=== PATIENT | female | born 1940 | race Caucasian/White ===

== ENCOUNTER 2016-12-11 15:35 | Inpatient (IN) | payer MEDICARE ==
--- NOTE | 2016-12-11 16:13 | ER Document Report ---
ED Respiratory Problem - General Chief Complaint: Shortness Of Breath Stated Complaint: SHORTNESS OF BREATH Time Seen by Provider: 12/11/16 16:02 Notes: This is a 76-year-old female with extensive history of COPD presents emergency department today with chief complaint of shortness of breath. Went to see primary care doctor and was referred here. Came by ambulance. Received Solu- Medrol in route as well as breathing treatment. States that she feels much better at this time. Has been having increased cough, congestion, and generally not feeling well. Denies any fevers. Denies any chest pain. Does not wear oxygen on a regular basis. Quit smoking 8 years ago. Has any prior history of DVT or pulmonary embolism. Denies any swelling or pain in the calves. Denies any previous history of blood clots. Denies any significant family history TRAVEL OUTSIDE OF THE [place] IN LAST 30 DAYS: No - HPI Patient complains to provider of: COPD Onset: Last week Duration: Continuous Context: Hx COPD Short of Breath: Moderate Chest pain/discomfort: denies: Center, Constant, Heaviness, Intermittent, Left, Pain, Radiates to arm, Radiates to back, Radiates to jaw, Right, Tightness, Worse with deep breaths Cough: Productive Sputum amount: None Sputum color: Brown Sputum consistency: Thick At home treatment: Bronchodilators EMS treatments: Bronchodilators Associated symptoms: None - Related Data Allergies/Adverse Reactions: codeine Allergy (Verified 12/11/16 16:03) Penicillins Allergy (Verified 12/11/16 16:03) sulfamethoxazole [From Bactrim] Allergy (Verified 12/11/16 16:03) trimethoprim [From Bactrim] Allergy (Verified 12/11/16 16:03) Home Medications: Current Home Medications Atorvastatin Calcium [Lipitor 20 mg Tablet] 20 mg PO QHS 12/11/16 [History] Omeprazole 20 mg PO DAILY 12/11/16 [History] Past Medical History - General Information source: Patient, Relative - Social History Smoking Status: Former Smoker Frequency of alcohol use: None Drug Abuse: None Family History: Reviewed & Not Pertinent Review of Systems - Review of Systems Constitutional: No symptoms reported EENT: No symptoms reported Cardiovascular: No symptoms reported Respiratory: No symptoms reported, Cough, Short of breath, Sputum, Wheezing Gastrointestinal: No symptoms reported Genitourinary: No symptoms reported Female Genitourinary: No symptoms reported Musculoskeletal: No symptoms reported Skin: No symptoms reported Hematologic/Lymphatic: No symptoms reported Neurological/Psychological: No symptoms reported Physical Exam - Vital signs Vitals: Pulse Ox 91 L 12/11/16 15:48 Interpretation: Normal - General General appearance: Appears well, Alert - HEENT Head: Normocephalic, Atraumatic Eyes: Normal Pupils: PERRL - Respiratory Respiratory status: No respiratory distress Chest status: Nontender Breath sounds: Normal, Rales, Rhonchi, Wheezing Chest palpation: Normal - Cardiovascular Rhythm: Regular Heart sounds: Normal auscultation Murmur: No - Abdominal Inspection: Normal Distension: No distension Bowel sounds: Normal Tenderness: Nontender Organomegaly: No organomegaly - Back Back: Normal, Nontender - Extremities General upper extremity: Normal inspection, Nontender, Normal color, Normal ROM , Normal temperature General lower extremity: Normal inspection, Nontender, Normal color, Normal ROM , Normal temperature, Normal weight bearing. No: Almita's sign - Neurological Neuro grossly intact: Yes Cognition: Normal Orientation: AAOx4 Alicia Coma Scale Eye Opening: Spontaneous Alicia Coma Scale Verbal: Oriented Alicia Coma Scale Motor: Obeys Commands [place] Coma Scale Total: 15 Speech: Normal Motor strength normal: LUE, RUE, LLE, RLE Sensory: Normal - Psychological Associated symptoms: Normal affect, Normal mood - Skin Skin Temperature: Warm Skin Moisture: Dry Skin Color: Normal Course - Re-evaluation Re-evalutation: 12/11/16 17:20 This is a pleasant 76-year-old female with history of COPD. Likely COPD exacerbation. Was initially 91% at the doctor's office. Now sitting at 94% on 3 L of oxygen. Heart rate is 92, blood pressure is 133/70. Patient states that she she feels much better at this time. We will start her on some antibiotics. Has already received Solu-Medrol and breathing treatments. If patient can maintain her oxygen levels and an appropriate level she may be able to go home. Will reassess after treatments are complete. A total of 3 breathing treatments have been given by EMS and in the emergency department. 12/11/16 18:45 Turned oxygen off and patient precipitously dropped to 88% and a respiratory rate increase. Patient unable to go home. No home O2 available. Patient is a frail COPD patient who needs to be admitted. Antibiotics have been started. Patient agrees to admit at this time. Consult with hospitalist for admit. - Vital Signs Vital signs: Temp Pulse Resp BP Pulse Ox 98.7 F 25 H 148/76 H 94 12/11/16 15:50 12/11/16 18:00 12/11/16 18:00 12/11/16 18:00 - Laboratory Result Diagrams: 12/11/16 16:07 12/11/16 16:07 Laboratory results interpreted by me: 12/11/16 12/11/16 12/11/16 16:07 16:07 17:47 RBC 3.62 L Hgb 11.7 L Hct 35.6 L MCV 98 H Chloride 96 L Creatinine 0.37 L AST 47 H ALT 71 H Urine Ketones TRACE H Urine Blood MODERATE H Ur Leukocyte Esterase LARGE H Urine Ascorbic Acid 40 H - EKG Interpretation by Me EKG shows normal: Sinus rhythm, [place], Intervals, QRS Complexes, ST-T Waves Discharge - Discharge Clinical Impression: COPD exacerbation UTI (urinary tract infection) Qualifiers: Urinary tract infection type: site unspecified Hematuria presence: without hematuria Qualified Code(s): N39.0 - Urinary tract infection, site not specified Condition: Good Disposition: ADMITTED INPATIENT Admitting Provider: Hospitalist Unit Admitted: Telemetry
[2016-12-11 16:20] LABS: ABSOLUTE BASOPHILS # (AUTO) 0.1 10^3/uL (0.0-0.2); ABSOLUTE EOSINOPHILS # (AUTO) 0.4 10^3/uL (0.0-0.6); ABSOLUTE LYMPHOCYTES (AUTO) 2.1 10^3/uL (0.5-4.7); ABSOLUTE MONOCYTES (AUTO) 0.5 10^3/uL (0.1-1.4); ABSOLUTE NEUT (AUTO) 4.3 10^3/uL (1.7-8.2); BASOPHILS % (AUTO) 0.9 % (0-2); HEMATOCRIT 35.6 % (36.0-47.0); HEMOGLOBIN 11.7 g/dL (12.0-15.5); HGB HCT DIFFERENCE -0.5; LYMPHOCYTES % (AUTO) 28.1 % (13-45); MEAN CORPUSCULAR HEMOGLOBIN 32.5 pg (27.0-33.4); MEAN CORPUSCULAR VOLUME 98 fl (80-97); MONOCYTES % (AUTO) 7.2 % (3-13); RED BLOOD COUNT 3.62 10^6/uL (3.72-5.28); RED CELL DISTRIBUTION WIDTH 12.7 % (11.5-14.0); SEGMENTED NEUTROPHILS % (AUTO) 57.8 % (42-78); WHITE BLOOD COUNT 7.5 10^3/uL (4.0-10.5)
--- NOTE | 2016-12-11 16:27 | RADIOLOGY REPORT (SQ) ---
EXAM DESCRIPTION: CHEST SINGLE VIEW COMPLETED DATE/TIME: 12/11/2016 4:08 pm REASON FOR STUDY: SOB COMPARISON: None. EXAM PARAMETERS: NUMBER OF VIEWS: One view. TECHNIQUE: Single frontal radiographic view of the chest acquired. RADIATION DOSE: NA LIMITATIONS: Limited positioning. FINDINGS: LUNGS AND PLEURA: Probable emphysematous changes with mild scarring. Pleural thickening i n the apices. No focal lobar infiltrates. No pleural effusion or pneumothorax. MEDIASTINUM AND HILAR STRUCTURES: No masses. Contour normal. HEART AND VASCULAR STRUCTURES: Heart normal in size. Normal vasculature. BONES: No acute findings. Chronic appearing changes in the spine with previous vertebroplasty. HARDWARE: None in the chest. OTHER: No other significant finding. IMPRESSION: COPD WITH CHRONIC SCARRING. NO ACUTE FINDINGS. TECHNICAL DOCUMENTATION: JOB ID: [id number]
[2016-12-11 16:42] LABS: ALANINE AMINOTRANSFERASE 71 U/L (9-52); ALBUMIN 4.4 g/dL (3.5-5.0); ALKALINE PHOSPHATASE 108 U/L (38-126); ANION GAP 12 (5-19); ASPARTATE AMINO TRANSFERASE 47 U/L (14-36); BILIRUBIN,DIRECT 0.4 mg/dL (0.0-0.4); BILIRUBIN,TOTAL 0.7 mg/dL (0.2-1.3); BLOOD UREA NITROGEN 10 mg/dL (7-20); CALCIUM 9.9 mg/dL (8.4-10.2); CARBON DIOXIDE 30 mmol/L (22-30); CHLORIDE 96 mmol/L (98-107); CREATINE KINASE 47 U/L (30-135); CREATININE RESULT 0.37 mg/dL (0.52-1.25); GLUCOSE 94 mg/dL (75-110); POTASSIUM 4.2 mmol/L (3.6-5.0); SODIUM 137.9 mmol/L (137-145); TOTAL PROTEIN 7.2 g/dL (6.3-8.2)
[2016-12-11 16:54] LABS: TROPONIN I < 0.012 ng/mL
[2016-12-11] MEDS ORDERED: LEVOFLOXACIN 500 MG/D5W RTU 500 MG/100 ML RTUPB IV SCH (18:00)
[2016-12-11] MEDS ORDERED: LEVOFLOXACIN 500 MG/D5W RTU 500 MG/100 ML RTUPB IV ONE (18:15)
[2016-12-11 18:16] LABS: APPEARANCE,URINE TURBID; BILIRUBIN,URINE NEGATIVE (NEGATIVE); GLUCOSE, URINE NEGATIVE (NEGATIVE); KETONES,URINE TRACE mg/dL (NEGATIVE); LEUKOCYTE ESTERASE,URINE LARGE (NEGATIVE); NITRITE,URINE NEGATIVE (NEGATIVE); PROTEIN,URINE NEGATIVE (NEGATIVE); URINE SPECIFIC GRAVITY 1.006; UROBILINOGEN,URINE NEGATIVE mg/dL (<2.0)
[2016-12-11] MEDS ORDERED: IPRATROPIUM/ALBUTEROL 0.5-2.5 MG/3 ML AMPUL NEB ONE (19:41)
[2016-12-11] MEDS: IPRATROPIUM/ALBUTEROL 0.5-2.5 MG/3 ML AMPUL NEB SCH (20:00)
[2016-12-11] MEDS: ALBUTEROL SULFATE 0.083% NEB 2.5 MG/3 ML AMPUL NEB PRN (20:00)
[2016-12-11] MEDS: METHYLPREDNISOLONE INJ 125 MG/2 ML SDV IV SCH (21:11)
[2016-12-11] MEDS ORDERED: GUAIFENESIN SYRP 200 MG/10 ML UDC PO PRN (21:42)
[2016-12-11] MEDS ORDERED: GUAIFENESIN 600 MG TABLET.SA PO SCH (22:00)
[2016-12-11] MEDS ORDERED: FAMOTIDINE 20 MG TABLET PO SCH (22:00)
--- NOTE | 2016-12-12 00:02 | PDOC H&P ---
History of Present Illness Admission Date/PCP: 12/11/16 21:42 Dr. Cotto History of Present Illness: JEN BAKER is a 76 year old female with past medical history of COPD, hypertension, hyperlipidemia, breast cancer treated with lumpectomy, and AVM of the spine who presents to the emergency department with complaints of shortness of breath and coughing. Patient reports she has been having a severe increase in her coughing over the last 3 days with production of brown to green sputum. She denies any fevers or chills. Patient reports a very long history of having left for about 2-1/2 years in an assisted living facility in [place] where she reports being poorly treated and having lost a significant amount of weight. She reports that she has been putting on weight now that she is living in [place]. She is now currently unable to walk. Patient denies any antecedent illness or sick contacts. Patient was given 2 breathing treatments and and Solu -Medrol by the EMS service, and is continuing to require oxygen and ongoing breathing treatments. She is referred to the hospitalist service for COPD exacerbation. Past Medical History Cardiac Medical History: Reports: Hyperlipidema, Hypertension Pulmonary Medical History: Reports: Chronic Obstructive Pulmonary Disease (COPD ) - 2L NC at home, Pneumonia EENT Medical History: Reports: Cataracts Malignancy Medical History: Reports: Breast Cancer GI Medical History: Reports: Gastroesophageal Reflux Disease Musculoskeltal Medical History: Reports: Arthritis Past Surgical History Past Surgical History: Reports: Appendectomy, Cholecystectomy, Orthopedic Surgery - femur john, lt shoulder, back surgery, ORIF of ankle Social History Smoking Status: Former Smoker Frequency of Alcohol Use: Rare Hx Recreational Drug Use: No Hx Prescription Drug Abuse: No - Advance Directive Resuscitation Status: Do Not Resuscitate Surrogate healthcare decision maker:: Jessie Flores, niece Family History Family History: Malignancy Parental Family History Reviewed: Yes Children Family History Reviewed: Yes Sibling(s) Family History Reviewed.: Yes Medication/Allergy Home Medications: Atorvastatin Calcium [Lipitor 20 mg Tablet] 20 mg PO QHS 12/11/16 Omeprazole 20 mg PO DAILY 12/11/16 Allergies/Adverse Reactions: codeine Allergy (Verified 12/11/16 16:03) Penicillins Allergy (Verified 12/11/16 16:03) sulfamethoxazole [From Bactrim] Allergy (Verified 12/11/16 16:03) trimethoprim [From Bactrim] Allergy (Verified 12/11/16 16:03) Review of Systems Constitutional: ABSENT: chills, fever(s), headache(s), weight gain, weight loss Eyes: ABSENT: visual disturbances Ears: ABSENT: hearing changes Cardiovascular: ABSENT: chest pain, dyspnea on exertion, edema, orthropnea, palpitations Respiratory: PRESENT: cough, dyspnea, sputum. ABSENT: hemoptysis Gastrointestinal: ABSENT: abdominal pain, constipation, diarrhea, hematemesis, hematochezia, melena, nausea, vomiting Genitourinary: ABSENT: difficulty urinating, dysuria, hematuria Musculoskeletal: ABSENT: joint swelling Integumentary: ABSENT: rash, wounds Neurological: PRESENT: abnormal gait - Unable to walk, other - Bilateral foot drop. ABSENT: abnormal speech, confusion, dizziness, focal weakness, syncope Psychiatric: PRESENT: depression - Insomnia. ABSENT: anxiety, homidical ideation, suicidal ideation Endocrine: ABSENT: cold intolerance, heat intolerance, polydipsia, polyuria Hematologic/Lymphatic: ABSENT: easy bleeding, easy bruising Physical Exam Vital Signs: Temp Pulse Resp BP Pulse Ox 98.3 F 20 145/83 H 96 12/11/16 21:01 12/11/16 21:01 12/11/16 21:00 12/11/16 21:01 General appearance: PRESENT: mild distress, thin, other - Very cachectic, chronically ill-appearing. ABSENT: well-developed, well-nourished Head exam: PRESENT: atraumatic, normocephalic Eye exam: PRESENT: conjunctiva pink, EOMI, PERRLA, other - Visible cataract lenses. ABSENT: conjunctival injection, scleral icterus Ear exam: PRESENT: normal external ear exam Mouth exam: PRESENT: dry mucosa, tongue midline Neck exam: ABSENT: JVD, lymphadenopathy, thyromegaly, tracheal deviation Respiratory exam: PRESENT: prolonged expiratory phas, rhonchi, symmetrical, tachypnea, unlabored, wheezes. ABSENT: accessory muscle use, crackles, rales, retraction Cardiovascular exam: PRESENT: RRR, +S1, +S2, systolic murmur. ABSENT: diastolic murmur, gallop, rubs Pulses: PRESENT: normal dorsalis pedis pul Vascular exam: PRESENT: normal capillary refill GI/Abdominal exam: PRESENT: normal bowel sounds, soft, other - Scaphoid. ABSENT : distended, firm, guarding, mass, Amor's sign, organolmegaly, rebound, rigid , tenderness Rectal exam: PRESENT: deferred Extremities exam: ABSENT: calf tenderness, clubbing, full ROM - Bilateral foot drop, pedal edema Neurological exam: PRESENT: alert, awake, oriented to person, oriented to place , oriented to time, oriented to situation, CN II-XII grossly intact, motor sensory deficit - Bilateral lower extremity weakness Psychiatric exam: PRESENT: appropriate affect, normal mood. ABSENT: homicidal ideation, suicidal ideation Skin exam: PRESENT: dry, intact, warm. ABSENT: cyanosis, rash Results Laboratory Results: 12/11/16 12/11/16 12/11/16 16:07 16:07 16:07 WBC 7.5 Hgb 11.7 L Plt Count 268 Sodium 137.9 Potassium 4.2 Chloride 96 L Carbon Dioxide 30 Anion Gap 12 BUN 10 Creatinine 0.37 L Glucose 94 Lactic Acid Calcium 9.9 Total Bilirubin 0.7 Direct Bilirubin 0.4 AST 47 H ALT 71 H Alkaline Phosphatase 108 Creatine Kinase 47 Troponin I < 0.012 Albumin 4.4 Urine Color Urine Appearance Urine Ketones Urine Blood Ur Leukocyte Esterase Urine WBC (Auto) Urine RBC (Auto) Urine Bacteria (Auto) Squamous Epi Cells Auto Urine Mucus (Auto) Urine Ascorbic Acid 12/11/16 12/11/16 16:35 17:47 WBC Hgb Plt Count Sodium Potassium Chloride Carbon Dioxide Anion Gap BUN Creatinine Glucose Lactic Acid 1.1 Calcium Total Bilirubin Direct Bilirubin AST ALT Alkaline Phosphatase Creatine Kinase Troponin I Albumin Urine Color GREEN Urine Appearance TURBID Urine Ketones TRACE H Urine Blood MODERATE H Ur Leukocyte Esterase LARGE H Urine WBC (Auto) 21 Urine RBC (Auto) 25 Urine Bacteria (Auto) 3+ Squamous Epi Cells Auto 1 Urine Mucus (Auto) RARE Urine Ascorbic Acid 40 H Impressions: Chest X-Ray 12/11/16 15:48 IMPRESSION: COPD WITH CHRONIC SCARRING. NO ACUTE FINDINGS. Status: Imported from PACS Assessment & Plan - Diagnosis (1) COPD exacerbation Is this a current diagnosis for this admission?: Yes Plan: Place patient on Solu-Medrol 80 mg iv q8h. scheduled duo nebs and as needed albuterol. Patient is conspicuously not on Spiriva or Advair. Would consider chronic inhaled corticosteroid as well as Spiriva for this patient. Patient with purulent sputum and currently on Levaquin pending sputum culture. (2) UTI (urinary tract infection) Qualifiers: Urinary tract infection type: site unspecified Hematuria presence: without hematuria Qualified Code(s): N39.0 - Urinary tract infection, site not specified Is this a current diagnosis for this admission?: Yes Plan: Patient currently on Levaquin pending culture (3) Acute hypoxemic respiratory failure Is this a current diagnosis for this admission?: Yes Plan: Oxygen to maintain saturation between 90 and 94%. Patient will likely need home O2. (4) Depression Qualifiers: Depression Type: unspecified Qualified Code(s): F32.9 - Major depressive disorder, single episode, unspecified Is this a current diagnosis for this admission?: Yes Plan: Patient reports having previously been on Remeron with good results. Will restart her on Remeron 7.5 p.o. nightly. (5) Protein-calorie malnutrition, severe Is this a current diagnosis for this admission?: Yes Plan: Place patient on Megace. Place patient on Magic cup 3 times daily and Ensure 3 times daily. Consult dietary (6) Hypertension Qualifiers: Hypertension type: unspecified Qualified Code(s): I10 - Essential (primary ) hypertension Is this a current diagnosis for this admission?: Yes Plan: Currently not treated and will treat if it is overall a systolic blood pressure of 150/90 (7) GERD (gastroesophageal reflux disease) Qualifiers: Esophagitis presence: esophagitis presence not specified Qualified Code(s) : K21.9 - Gastro-esophageal reflux disease without esophagitis Is this a current diagnosis for this admission?: Yes Plan: Continue PPI (8) Hyperlipidemia Qualifiers: Hyperlipidemia type: unspecified Qualified Code(s): E78.5 - Hyperlipidemia , unspecified Is this a current diagnosis for this admission?: Yes Plan: Hold statin - Time Time Spent: 50 to 70 Minutes Medications reviewed and adjusted accordingly: Yes Anticipated discharge: Home, Home with Homehealth Within: Other - Inpatient Certification Based on my medical assessment, after consideration of the patient's comorbidities, presenting symptoms, or acuity I expect that the services needed warrant INPATIENT care.: Yes - Upon improvement of symptomatology I certify that my determination is in accordance with my understanding of Medicare's requirements for reasonable and necessary INPATIENT services [42 CFR 412.3e].: Yes Medical Necessity: Need For IV Fluids, Need For Continuous Telemetry Monitoring , Need for Nebulizer Therapy and Monitoring of Response, Need for IV Antibiotics Post Hospital 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
[2016-12-12] MEDS: MIRTAZAPINE 15 MG TABLET PO SCH ×2 (00:19→21:09)
[2016-12-12] MEDS: NORMAL SALINE 1000 ML 1,000 ML IV PRN (00:24)
[2016-12-12] MEDS: IPRATROPIUM/ALBUTEROL 0.5-2.5 MG/3 ML AMPUL NEB SCH ×4 (01:46→20:16)
[2016-12-12] MEDS: METHYLPREDNISOLONE INJ 125 MG/2 ML SDV IV SCH ×3 (05:10→21:10)
[2016-12-12 06:17] LABS: ABSOLUTE LYMPHOCYTES (AUTO) 0.5 10^3/uL (0.5-4.7); ABSOLUTE MONOCYTES (AUTO) 0.1 10^3/uL (0.1-1.4); ABSOLUTE NEUT (AUTO) 3.3 10^3/uL (1.7-8.2); BASOPHILS % (AUTO) 0.1 % (0-2); EOSINOPHILS % (AUTO) 0.1 % (0-6); HEMATOCRIT 33.6 % (36.0-47.0); HEMOGLOBIN 11.6 g/dL (12.0-15.5); HGB HCT DIFFERENCE 1.2; LYMPHOCYTES % (AUTO) 13.1 % (13-45); MEAN CORPUSCULAR HEMOGLOBIN 33.7 pg (27.0-33.4); MEAN CORPUSCULAR HGB CONC 34.5 g/dL (32.0-36.0); MEAN CORPUSCULAR VOLUME 98 fl (80-97); MONOCYTES % (AUTO) 2.7 % (3-13); RED BLOOD COUNT 3.44 10^6/uL (3.72-5.28); RED CELL DISTRIBUTION WIDTH 12.9 % (11.5-14.0); WHITE BLOOD COUNT 3.9 10^3/uL (4.0-10.5)
[2016-12-12 06:23] LABS: ANION GAP 10 (5-19); BLOOD UREA NITROGEN 11 mg/dL (7-20); CALCIUM 9.7 mg/dL (8.4-10.2); CARBON DIOXIDE 34 mmol/L (22-30); CHLORIDE 96 mmol/L (98-107); CREATININE RESULT 0.38 mg/dL (0.52-1.25); GLUCOSE 178 mg/dL (75-110); POTASSIUM 4.7 mmol/L (3.6-5.0); SODIUM 140.2 mmol/L (137-145)
[2016-12-12] MEDS ORDERED: TIOTROPIUM BROMIDE DPI 5 CAP/KIT (18 MCG/CAP) IH SCH (10:00)
[2016-12-12] MEDS: GUAIFENESIN 600 MG TABLET.SA PO SCH ×2 (10:51→21:09)
[2016-12-12] MEDS: MULTIVIT-STRESS FORMULA/ZINC TABLET PO SCH (10:52)
[2016-12-12] MEDS: MEGESTROL ACETATE SUSP 400 MG/10 ML UDCUP PO SCH (10:52)
[2016-12-12] MEDS: ASCORBIC ACID 500 MG TABLET PO SCH ×2 (10:52→17:35)
[2016-12-12] MEDS: CHOLECALCIFEROL (D3) 1,000 UNIT TABLET PO SCH (10:52)
[2016-12-12] MEDS: ACETAMINOPHEN 325 MG TABLET PO PRN ×2 (14:47→20:14)
[2016-12-12] MEDS ORDERED: INFLUENZA ADLT QUAD (36MOS+) 2017-18 VAC 0.5 ML SYR IM PRN (15:54)
[2016-12-12] MEDS ORDERED: BENZONATATE 100 MG CAPSULE PO PRN (16:19)
--- NOTE | 2016-12-12 16:22 | PDOC PROGRESS REPORT ---
Subjective Progress Note for:: 12/12/16 Subjective:: Patient is a 76-year-old female with a history of COPD, hypertension, hyperlipidemia, breast cancer status post lumpectomy. AVM of the spine presenting with COPD exacerbation. Patient still having some difficulty breathing however her main concern is not being able to have oxygen at home. She states that her insurance does not allow her to have oxygen. Patient is very frustrated with the situation. Patient is having peaches at this time. Patient only wants vanilla pudding and ice cream. Patient does not want anything else to eat at this time. Physical Exam Vital Signs: Temp Pulse Resp BP Pulse Ox 98.2 F 104 H 18 142/62 H 98 12/12/16 15:34 12/12/16 15:34 12/12/16 15:34 12/12/16 15:34 12/12/16 15:34 Intake & Output 12/11/16 12/12/16 12/13/16 06:59 06:59 06:59 Intake Total 248 Balance 248 Weight 34.9 kg General appearance: PRESENT: mild distress, thin, other - cachetic Head exam: PRESENT: normocephalic, other - bitemporal wasting Eye exam: PRESENT: EOMI. ABSENT: scleral icterus Ear exam: PRESENT: normal external ear exam Mouth exam: PRESENT: moist Neck exam: ABSENT: carotid bruit, JVD, lymphadenopathy, thyromegaly Respiratory exam: PRESENT: accessory muscle use, tachypnea. ABSENT: unlabored Cardiovascular exam: PRESENT: RRR. ABSENT: diastolic murmur, rubs, systolic murmur Pulses: PRESENT: normal dorsalis pedis pul Vascular exam: PRESENT: normal capillary refill GI/Abdominal exam: PRESENT: normal bowel sounds, soft. ABSENT: distended, guarding, mass, organolmegaly, rebound, tenderness Rectal exam: PRESENT: deferred Extremities exam: PRESENT: full ROM. ABSENT: calf tenderness, clubbing, pedal edema Neurological exam: PRESENT: alert, awake, oriented to person, oriented to place , oriented to time, oriented to situation, CN II-XII grossly intact. ABSENT: motor sensory deficit Psychiatric exam: PRESENT: appropriate affect, normal mood. ABSENT: homicidal ideation, suicidal ideation Skin exam: PRESENT: dry, intact, warm. ABSENT: cyanosis, rash Results Laboratory Results: 12/12/16 04:42 12/12/16 04:42 12/12/16 12/12/16 04:42 04:42 WBC 3.9 L RBC 3.44 L Hgb 11.6 L Hct 33.6 L MCV 98 H MCH 33.7 H MCHC 34.5 RDW 12.9 Plt Count 242 Seg Neutrophils % 84.0 H Lymphocytes % 13.1 Monocytes % 2.7 L Eosinophils % 0.1 Basophils % 0.1 Absolute Neutrophils 3.3 Absolute Lymphocytes 0.5 Absolute Monocytes 0.1 Absolute Eosinophils 0.0 Absolute Basophils 0.0 Sodium 140.2 Potassium 4.7 Chloride 96 L Carbon Dioxide 34 H Anion Gap 10 BUN 11 Creatinine 0.38 L Est GFR ( Amer) > 60 Est GFR (Non-Af Amer) > 60 Glucose 178 H Calcium 9.7 Impressions: Chest X-Ray 12/11/16 15:48 IMPRESSION: COPD WITH CHRONIC SCARRING. NO ACUTE FINDINGS. Assessment & Plan - Diagnosis (1) COPD exacerbation Is this a current diagnosis for this admission?: Yes Plan: With COPD exacerbation continue on Solu-Medrol decreased to 60 mg IV 3 times daily. Scheduled meds switched to q. 4. Started budesonide. Will hold Spiriva for now. Patient on Levaquin. (2) Chronic respiratory failure with hypoxia, on home O2 therapy Plan: Patient states she is on supplemental oxygen the past however was unable to get it here after relocating from [place]. Did speak to case management in regards to this. Stated that patient will qualify as long as she desats below the 80s. (3) Depression Qualifiers: Depression Type: unspecified Qualified Code(s): F32.9 - Major depressive disorder, single episode, unspecified Is this a current diagnosis for this admission?: Yes Plan: Patient currently on Remeron. Will continue this medication. This will also help with her appetite. (4) GERD (gastroesophageal reflux disease) Qualifiers: Esophagitis presence: esophagitis presence not specified Qualified Code(s) : K21.9 - Gastro-esophageal reflux disease without esophagitis Is this a current diagnosis for this admission?: Yes Plan: Patient on PPI. (5) Hyperlipidemia Qualifiers: Hyperlipidemia type: unspecified Qualified Code(s): E78.5 - Hyperlipidemia , unspecified Is this a current diagnosis for this admission?: Yes Plan: Patient statin currently being held as opposed to patient AST and ALT being mildly elevated at 47 AST and ALT of 71. (6) Hypertension Qualifiers: Hypertension type: unspecified Qualified Code(s): I10 - Essential (primary ) hypertension Is this a current diagnosis for this admission?: Yes Plan: Blood pressures have been stable despite not being on any medications. Will continue to monitor. (7) Protein-calorie malnutrition, severe Is this a current diagnosis for this admission?: Yes Plan: Patient has a BMI of 14.1. Patient states she has actually gained weight since moving here from [place]. Patient appears to be a very selective eater. Dietary consult was in place will place one. (8) UTI (urinary tract infection) Qualifiers: Urinary tract infection type: site unspecified Hematuria presence: without hematuria Qualified Code(s): N39.0 - Urinary tract infection, site not specified Is this a current diagnosis for this admission?: Yes Plan: Urine is growing gram-positive cocci in pairs patient is currently on Levaquin. We will continue to follow urine cultures. - Time Time Spent with patient: 15-24 minutes Anticipated discharge: Home with Homehealth Within: within 72 hours - Inpatient Certification Medical Necessity: Need Close Monitoring Due to Risk of Patient Decompensation
[2016-12-12] MEDS: ALBUTEROL SULFATE 0.083% NEB 2.5 MG/3 ML AMPUL NEB PRN (16:35)
[2016-12-12] MEDS ORDERED: BUDESONIDE NEB 0.5 MG/2 ML AMPUL NEB ONE (16:45)
[2016-12-12] MEDS: LEVOFLOXACIN 250 MG/D5W RTU 250 MG/50 ML RTUPB IV SCH (17:36)
[2016-12-12] MEDS: BUDESONIDE NEB 0.5 MG/2 ML AMPUL NEB SCH (20:16)
[2016-12-12] MEDS: MONTELUKAST SODIUM 10 MG TABLET PO SCH (21:09)
--- NOTE | 2016-12-12 21:49 | EKG REPORT ---
SEVERITY:- ABNORMAL ECG - SINUS RHYTHM CONSIDER ANTEROSEPTAL INFARCT : Confirmed by: Yokasta Brown 12-Dec-2016 21:48:24
[2016-12-13] MEDS: IPRATROPIUM/ALBUTEROL 0.5-2.5 MG/3 ML AMPUL NEB SCH ×6 (00:27→19:54)
[2016-12-13] MEDS: METHYLPREDNISOLONE INJ 125 MG/2 ML SDV IV SCH ×3 (05:09→21:11)
[2016-12-13] MEDS: LANSOPRAZOLE 15 MG TAB.RAP.DR PO SCH (05:09)
[2016-12-13 05:38] LABS: ABSOLUTE LYMPHOCYTES (AUTO) 0.6 10^3/uL (0.5-4.7); ABSOLUTE MONOCYTES (AUTO) 0.5 10^3/uL (0.1-1.4); ABSOLUTE NEUT (AUTO) 5.7 10^3/uL (1.7-8.2); HEMATOCRIT 33.7 % (36.0-47.0); HEMOGLOBIN 11.3 g/dL (12.0-15.5); HGB HCT DIFFERENCE 0.2; LYMPHOCYTES % (AUTO) 9.4 % (13-45); MEAN CORPUSCULAR HEMOGLOBIN 32.8 pg (27.0-33.4); MEAN CORPUSCULAR HGB CONC 33.5 g/dL (32.0-36.0); MEAN CORPUSCULAR VOLUME 98 fl (80-97); MONOCYTES % (AUTO) 6.9 % (3-13); RED BLOOD COUNT 3.45 10^6/uL (3.72-5.28); SEGMENTED NEUTROPHILS % (AUTO) 83.7 % (42-78); WHITE BLOOD COUNT 6.8 10^3/uL (4.0-10.5)
[2016-12-13 05:52] LABS: ANION GAP 10 (5-19); BLOOD UREA NITROGEN 14 mg/dL (7-20); CALCIUM 9.8 mg/dL (8.4-10.2); CARBON DIOXIDE 34 mmol/L (22-30); CHLORIDE 102 mmol/L (98-107); CREATININE RESULT 0.36 mg/dL (0.52-1.25); GLUCOSE 158 mg/dL (75-110); POTASSIUM 4.6 mmol/L (3.6-5.0); SODIUM 146.1 mmol/L (137-145)
[2016-12-13] MEDS: BUDESONIDE NEB 0.5 MG/2 ML AMPUL NEB SCH ×2 (08:26→19:54)
[2016-12-13] MEDS: NORMAL SALINE 1000 ML 1,000 ML IV PRN (09:47)
[2016-12-13] MEDS: MEGESTROL ACETATE SUSP 400 MG/10 ML UDCUP PO SCH (09:47)
[2016-12-13] MEDS: GUAIFENESIN 600 MG TABLET.SA PO SCH ×2 (09:48→21:11)
[2016-12-13] MEDS: ASCORBIC ACID 500 MG TABLET PO SCH ×2 (09:48→17:20)
[2016-12-13] MEDS: CHOLECALCIFEROL (D3) 1,000 UNIT TABLET PO SCH (09:48)
[2016-12-13] MEDS: MULTIVIT-STRESS FORMULA/ZINC TABLET PO SCH (09:48)
[2016-12-13] MEDS: ACETAMINOPHEN 325 MG TABLET PO PRN ×2 (14:11→19:54)
--- NOTE | 2016-12-13 14:23 | PDOC PROGRESS REPORT ---
Subjective Progress Note for:: 12/13/16 Subjective:: Patient is a 76-year-old female with a history of COPD, hypertension, hyperlipidemia, breast cancer status post lumpectomy. AVM of the spine presenting with COPD exacerbation. Patient still having difficulty breathing. Did discuss with patient and patient family about the options of palliative care versus hospice. Patient appears to have end-stage lung disease and is oxygen dependent. Unfortunately patient family is unable to obtain the necessary supplies including oxygen without having to pay out of pocket. Patient states that the oxygen was not covered by the insurance company. Patient is open and willing to speaking with hospice. Physical Exam Vital Signs: Temp Pulse Resp BP Pulse Ox 98.0 F 108 H 20 126/69 H 98 12/13/16 10:54 12/13/16 12:20 12/13/16 12:20 12/13/16 10:54 12/13/16 10:54 Intake & Output 12/12/16 12/13/16 12/14/16 06:59 06:59 06:59 Intake Total 248 1506 Balance 248 1506 Weight 34.9 kg 37.3 kg General appearance: PRESENT: mild distress, thin, other - Emaciated Head exam: PRESENT: normocephalic, other - Bitemporal wasting Eye exam: PRESENT: EOMI. ABSENT: scleral icterus Ear exam: PRESENT: normal external ear exam Mouth exam: PRESENT: dry mucosa Neck exam: ABSENT: carotid bruit, JVD, lymphadenopathy, thyromegaly Respiratory exam: PRESENT: rhonchi, tachypnea. ABSENT: rales, unlabored, wheezes Cardiovascular exam: PRESENT: RRR. ABSENT: diastolic murmur, rubs, systolic murmur Pulses: PRESENT: normal dorsalis pedis pul Vascular exam: PRESENT: normal capillary refill GI/Abdominal exam: PRESENT: normal bowel sounds, soft. ABSENT: distended, guarding, mass, organolmegaly, rebound, tenderness Rectal exam: PRESENT: deferred Extremities exam: ABSENT: calf tenderness, clubbing, pedal edema Musculoskeletal exam: ABSENT: ambulatory Neurological exam: PRESENT: alert, awake, oriented to person, oriented to place , oriented to time, oriented to situation, CN II-XII grossly intact. ABSENT: motor sensory deficit Psychiatric exam: PRESENT: appropriate affect, normal mood. ABSENT: homicidal ideation, suicidal ideation Skin exam: PRESENT: dry, intact, warm. ABSENT: cyanosis, rash Results Laboratory Results: 12/13/16 04:47 12/13/16 04:47 12/13/16 12/13/16 04:47 04:47 WBC 6.8 RBC 3.45 L Hgb 11.3 L Hct 33.7 L MCV 98 H MCH 32.8 MCHC 33.5 RDW 13.0 Plt Count 269 Seg Neutrophils % 83.7 H Lymphocytes % 9.4 L Monocytes % 6.9 Eosinophils % 0.0 Basophils % 0.0 Absolute Neutrophils 5.7 Absolute Lymphocytes 0.6 Absolute Monocytes 0.5 Absolute Eosinophils 0.0 Absolute Basophils 0.0 Sodium 146.1 H Potassium 4.6 Chloride 102 Carbon Dioxide 34 H Anion Gap 10 BUN 14 Creatinine 0.36 L Est GFR ( Amer) > 60 Est GFR (Non-Af Amer) > 60 Glucose 158 H Calcium 9.8 Impressions: Chest X-Ray 12/11/16 15:48 IMPRESSION: COPD WITH CHRONIC SCARRING. NO ACUTE FINDINGS. Assessment & Plan - Diagnosis (1) Chronic respiratory failure with hypoxia, on home O2 therapy Plan: Patient states she supposed to be on patient however she has been unable to obtain home O2 since relocating here from [place]. Patient needs has been trying desperately to get her oxygen has been buying oxygen out of her own pocket. Management has been consulted in this regard. (2) Depression Qualifiers: Depression Type: unspecified Qualified Code(s): F32.9 - Major depressive disorder, single episode, unspecified Is this a current diagnosis for this admission?: Yes Plan: Continue Remeron. (3) COPD exacerbation Is this a current diagnosis for this admission?: Yes Plan: COPD exacerbation continue on Solu-Medrol and nebs Q4. Continue budesonide. Will hold Spiriva for now. Continue Levaquin. Discussed with patient family regarding patient having COPD and poor prognosis. Patient is pretty much bedbound at this time and becomes short of breath even with just speaking. Did discuss with him the option of hospice palliative care. Patient is currently a DNR. Patient states she is not afraid to . She states she would like to be home with her family uncomfortable. She does not want to be a burden to her family. She has appointed her niece to be her away however she has not signed the documents yet. (4) GERD (gastroesophageal reflux disease) Qualifiers: Esophagitis presence: esophagitis presence not specified Qualified Code(s) : K21.9 - Gastro-esophageal reflux disease without esophagitis Is this a current diagnosis for this admission?: Yes Plan: Patient on PPI. (5) Hyperlipidemia Qualifiers: Hyperlipidemia type: unspecified Qualified Code(s): E78.5 - Hyperlipidemia , unspecified Is this a current diagnosis for this admission?: Yes Plan: Patient statin being held for mild transaminitis. (6) Hypertension Qualifiers: Hypertension type: unspecified Qualified Code(s): I10 - Essential (primary ) hypertension Is this a current diagnosis for this admission?: Yes Plan: Blood pressures have been stable despite not being on any medications. Will continue to monitor. (7) Protein-calorie malnutrition, severe Is this a current diagnosis for this admission?: Yes Plan: Patient has a BMI of 14.1. Patient states she has actually gained weight since moving here from [place]. Patient appears to be a very selective eater. Dietary consult was in place will [facility]. (8) UTI (urinary tract infection) Qualifiers: Urinary tract infection type: site unspecified Hematuria presence: without hematuria Qualified Code(s): N39.0 - Urinary tract infection, site not specified Is this a current diagnosis for this admission?: Yes Plan: Urine is growing gram-positive cocci in pairs patient is currently on Levaquin. Continue to follow cultures. - Time Time Spent with patient: 35 or more minutes Anticipated discharge: Hospice - Hospice has been consulted to come and speak with the patient. Patient patient family are on board with this. They understand what hospice is agreeable to whatever they may have to offer as long as patient is able to have at home. They do not want the patient to be placed anywhere. - Inpatient Certification Medical Necessity: Significant Comorbidiites Make Outpatient Treatment Too Risky , Need Close Monitoring Due to Risk of Patient Decompensation
[2016-12-13] MEDS: LEVOFLOXACIN 250 MG/D5W RTU 250 MG/50 ML RTUPB IV SCH (17:20)
[2016-12-13] MEDS: MONTELUKAST SODIUM 10 MG TABLET PO SCH (21:11)
[2016-12-13] MEDS: MIRTAZAPINE 15 MG TABLET PO SCH (21:11)
[2016-12-13] MEDS: ALBUTEROL SULFATE 0.083% NEB 2.5 MG/3 ML AMPUL NEB PRN (22:26)
[2016-12-14] MEDS: IPRATROPIUM/ALBUTEROL 0.5-2.5 MG/3 ML AMPUL NEB SCH ×5 (00:04→20:14)
[2016-12-14] MEDS: METHYLPREDNISOLONE INJ 125 MG/2 ML SDV IV SCH (05:05)
[2016-12-14] MEDS: LANSOPRAZOLE 15 MG TAB.RAP.DR PO SCH (05:05)
[2016-12-14 06:55] LABS: ABSOLUTE LYMPHOCYTES (AUTO) 0.7 10^3/uL (0.5-4.7); ABSOLUTE NEUT (AUTO) 8.4 10^3/uL (1.7-8.2); BASOPHILS % (AUTO) 0.1 % (0-2); HEMATOCRIT 32.8 % (36.0-47.0); HEMOGLOBIN 10.9 g/dL (12.0-15.5); HGB HCT DIFFERENCE -0.1; LYMPHOCYTES % (AUTO) 6.8 % (13-45); MEAN CORPUSCULAR HEMOGLOBIN 32.8 pg (27.0-33.4); MEAN CORPUSCULAR HGB CONC 33.3 g/dL (32.0-36.0); MEAN CORPUSCULAR VOLUME 98 fl (80-97); MONOCYTES % (AUTO) 9.6 % (3-13); RED BLOOD COUNT 3.34 10^6/uL (3.72-5.28); RED CELL DISTRIBUTION WIDTH 13.3 % (11.5-14.0); SEGMENTED NEUTROPHILS % (AUTO) 83.5 % (42-78)
[2016-12-14 07:30] LABS: ANION GAP 12 (5-19); BLOOD UREA NITROGEN 19 mg/dL (7-20); CALCIUM 9.7 mg/dL (8.4-10.2); CARBON DIOXIDE 34 mmol/L (22-30); CHLORIDE 101 mmol/L (98-107); CREATININE RESULT 0.61 mg/dL (0.52-1.25); GLUCOSE 169 mg/dL (75-110); POTASSIUM 4.3 mmol/L (3.6-5.0); SODIUM 147.3 mmol/L (137-145)
[2016-12-14] MEDS: BUDESONIDE NEB 0.5 MG/2 ML AMPUL NEB SCH ×2 (08:42→20:14)
[2016-12-14] MEDS ORDERED: IBUPROFEN 400 MG TABLET PO PRN (10:20)
[2016-12-14] MEDS ORDERED: BENZONATATE 100 MG CAPSULE PO PRN (10:30)
[2016-12-14] MEDS: ASCORBIC ACID 500 MG TABLET PO SCH ×2 (10:48→18:21)
[2016-12-14] MEDS: MEGESTROL ACETATE SUSP 400 MG/10 ML UDCUP PO SCH (10:48)
[2016-12-14] MEDS: CHOLECALCIFEROL (D3) 1,000 UNIT TABLET PO SCH (10:48)
[2016-12-14] MEDS: MULTIVIT-STRESS FORMULA/ZINC TABLET PO SCH (10:48)
[2016-12-14] MEDS: GUAIFENESIN 600 MG TABLET.SA PO SCH ×2 (10:48→21:55)
[2016-12-14] MEDS ORDERED: KETOROLAC TROMETHAMINE INJ/PF 30 MG/1 ML SDV IV ONE (11:00)
--- NOTE | 2016-12-14 13:47 | PDOC PROGRESS REPORT ---
Subjective Progress Note for:: 12/14/16 Subjective:: Patient is a 76-year-old female with a history of COPD, hypertension, hyperlipidemia, breast cancer status post lumpectomy. AVM of the spine presenting with COPD exacerbation. She had a coughing spell last night. Patient states she still having some difficulty breathing but her main problem is her pain. Patient states her back is hurting her. Patient states she does not want to take any narcotics if she can help it. Patient is agreeable to taking Motrin. Physical Exam Vital Signs: Temp Pulse Resp BP Pulse Ox 97.9 F 105 H 20 143/61 H 96 12/14/16 03:39 12/14/16 08:42 12/14/16 08:42 12/14/16 03:39 12/14/16 08:42 Intake & Output 12/13/16 12/14/16 12/15/16 06:59 06:59 05:59 Intake Total 1506 1547 275 Balance 1506 1547 275 Weight 37.3 kg 37.5 kg General appearance: PRESENT: no acute distress, thin, other - Cachectic Head exam: PRESENT: normocephalic Eye exam: PRESENT: EOMI. ABSENT: scleral icterus Ear exam: PRESENT: normal external ear exam Mouth exam: PRESENT: moist Neck exam: ABSENT: carotid bruit, JVD, lymphadenopathy, thyromegaly Respiratory exam: PRESENT: clear to auscultation shane. ABSENT: rales, rhonchi, wheezes Cardiovascular exam: PRESENT: RRR. ABSENT: diastolic murmur, rubs, systolic murmur Pulses: PRESENT: normal dorsalis pedis pul Vascular exam: PRESENT: normal capillary refill GI/Abdominal exam: PRESENT: normal bowel sounds, soft. ABSENT: distended, guarding, mass, organolmegaly, rebound, tenderness Rectal exam: PRESENT: deferred Extremities exam: PRESENT: clubbing, full ROM, other - Tenderness of the left foot healed. No visible abrasion or skin breakdown Of the heel. ABSENT: calf tenderness, pedal edema Neurological exam: PRESENT: alert, awake, oriented to person, oriented to place , oriented to time, oriented to situation, CN II-XII grossly intact. ABSENT: motor sensory deficit Psychiatric exam: PRESENT: appropriate affect, normal mood. ABSENT: homicidal ideation, suicidal ideation Skin exam: PRESENT: dry, intact, warm. ABSENT: cyanosis, rash Results Laboratory Results: 12/14/16 05:58 12/14/16 05:58 12/14/16 12/14/16 05:58 05:58 WBC 10.0 RBC 3.34 L Hgb 10.9 L Hct 32.8 L MCV 98 H MCH 32.8 MCHC 33.3 RDW 13.3 Plt Count 288 Seg Neutrophils % 83.5 H Lymphocytes % 6.8 L Monocytes % 9.6 Eosinophils % 0.0 Basophils % 0.1 Absolute Neutrophils 8.4 H Absolute Lymphocytes 0.7 Absolute Monocytes 1.0 Absolute Eosinophils 0.0 Absolute Basophils 0.0 Sodium 147.3 H Potassium 4.3 Chloride 101 Carbon Dioxide 34 H Anion Gap 12 BUN 19 Creatinine 0.61 Est GFR ( Amer) > 60 Est GFR (Non-Af Amer) > 60 Glucose 169 H Calcium 9.7 Impressions: Chest X-Ray 12/11/16 15:48 IMPRESSION: COPD WITH CHRONIC SCARRING. NO ACUTE FINDINGS. Assessment & Plan - Diagnosis (1) Chronic respiratory failure with hypoxia, on home O2 therapy Plan: Tenuous supplemental oxygen. Patient is fairly stable and maintaining her sats. She does become tachypneic when she exerts herself. (2) Depression Qualifiers: Depression Type: unspecified Qualified Code(s): F32.9 - Major depressive disorder, single episode, unspecified Is this a current diagnosis for this admission?: Yes Plan: Continue Remeron. (3) COPD exacerbation Is this a current diagnosis for this admission?: Yes Plan: Patient continues to have coarse breath sounds no wheezing. Will wean her Solu- Medrol to 40 mg 3 times daily. Will continue her nebs but also will change dose from every 4 to every 6. Continue Levaquin. Continue inhaled steroids. (4) GERD (gastroesophageal reflux disease) Qualifiers: Esophagitis presence: esophagitis presence not specified Qualified Code(s) : K21.9 - Gastro-esophageal reflux disease without esophagitis Is this a current diagnosis for this admission?: Yes Plan: Patient on PPI. (5) Hyperlipidemia Qualifiers: Hyperlipidemia type: unspecified Qualified Code(s): E78.5 - Hyperlipidemia , unspecified Is this a current diagnosis for this admission?: Yes Plan: Patient statin being held for mild transaminitis. (6) Hypertension Qualifiers: Hypertension type: unspecified Qualified Code(s): I10 - Essential (primary ) hypertension Is this a current diagnosis for this admission?: Yes Plan: Will start on low-dose beta-rogerio. (7) Protein-calorie malnutrition, severe Is this a current diagnosis for this admission?: Yes Plan: Patient has a BMI of 14.1. Patient states she has actually gained weight since moving here from [place]. Patient appears to be a very selective eater. Dietary consult was in place will place one. (8) UTI (urinary tract infection) Qualifiers: Urinary tract infection type: site unspecified Hematuria presence: without hematuria Qualified Code(s): N39.0 - Urinary tract infection, site not specified Is this a current diagnosis for this admission?: Yes Plan: Urine positive for enterococcus. This is susceptible to Levaquin which patient is currently on. (9) Tachycardia Is this a current diagnosis for this admission?: Yes Plan: Most likely due to duo nebs. Will wean to every 6 from every 4. If tachycardia continues will change to Xopenex.. Will also start patient on low dose beta-rogerio. (10) Chronic pain Qualifiers: Chronic pain type: chronic pain syndrome Qualified Code(s): G89.4 - Chronic pain syndrome Is this a current diagnosis for this admission?: Yes Plan: Consider changing patient's Remeron to Cymbalta which could help with her pain depression and anxiety. Patient does not want to take any narcotics for her pain. We will also try patient on a low-dose gabapentin. Patient was given a dose of Toradol. Patient states he would rather take Motrin and Tylenol. Patient states that opiates cause her to have severe itching and rash and she just does not like taking them. - Time Anticipated discharge: Hospice Within: Other - Inpatient Certification Medical Necessity: Other - Waiting for the hospice nurse to give recommendations prior to discharging patient home with hospice if this is what the family and patient still desires.
[2016-12-14] MEDS: METHYLPREDNISOLONE INJ 40 MG/1 ML SDV IV SCH ×2 (14:07→21:59)
[2016-12-14] MEDS: GABAPENTIN 100 MG CAPSULE PO SCH ×2 (14:32→21:55)
[2016-12-14] MEDS: LEVOFLOXACIN 250 MG/D5W RTU 250 MG/50 ML RTUPB IV SCH (18:21)
[2016-12-14] MEDS: MONTELUKAST SODIUM 10 MG TABLET PO SCH (21:59)
[2016-12-15] MEDS: IPRATROPIUM/ALBUTEROL 0.5-2.5 MG/3 ML AMPUL NEB SCH ×4 (01:35→19:55)
[2016-12-15] MEDS: GABAPENTIN 100 MG CAPSULE PO SCH ×3 (06:43→21:40)
[2016-12-15] MEDS: METHYLPREDNISOLONE INJ 40 MG/1 ML SDV IV SCH (06:43)
[2016-12-15] MEDS: LANSOPRAZOLE 15 MG TAB.RAP.DR PO SCH (06:43)
[2016-12-15] MEDS: BUDESONIDE NEB 0.5 MG/2 ML AMPUL NEB SCH ×2 (08:33→19:55)
[2016-12-15] MEDS: MULTIVIT-STRESS FORMULA/ZINC TABLET PO SCH (10:00)
[2016-12-15] MEDS: MEGESTROL ACETATE SUSP 400 MG/10 ML UDCUP PO SCH (10:00)
[2016-12-15] MEDS: DULOXETINE HCL 20 MG CAPSULE.DR PO SCH (10:00)
[2016-12-15] MEDS: CHOLECALCIFEROL (D3) 1,000 UNIT TABLET PO SCH (10:01)
[2016-12-15] MEDS: GUAIFENESIN 600 MG TABLET.SA PO SCH ×2 (10:01→21:40)
[2016-12-15] MEDS: ASCORBIC ACID 500 MG TABLET PO SCH ×2 (10:01→17:37)
[2016-12-15] MEDS: METOPROLOL SUCCINATE 25 MG TAB.SR.24H PO SCH (10:01)
[2016-12-15] MEDS: LEVOFLOXACIN 250 MG/D5W RTU 250 MG/50 ML RTUPB IV SCH (17:37)
[2016-12-15] MEDS: MONTELUKAST SODIUM 10 MG TABLET PO SCH (21:40)
[2016-12-15] MEDS ORDERED: METHYLPREDNISOLONE INJ 40 MG/1 ML SDV IV SCH (22:00)
[2016-12-16] MEDS: IPRATROPIUM/ALBUTEROL 0.5-2.5 MG/3 ML AMPUL NEB SCH ×4 (01:47→19:46)
--- NOTE | 2016-12-16 03:30 | PDOC PROGRESS REPORT ---
Subjective Progress Note for:: 12/15/16 Subjective:: Patient is a 76-year-old female with a history of COPD, hypertension, hyperlipidemia, breast cancer status post lumpectomy. AVM of the spine presenting with COPD exacerbation. Patient states she is doing better and is asking when she will go home. Physical Exam Vital Signs: Temp Pulse Resp BP Pulse Ox 97.8 F 80 18 135/59 H 95 12/15/16 23:48 12/16/16 01:47 12/16/16 01:47 12/15/16 23:48 12/16/16 01:47 Intake & Output 12/14/16 12/15/16 12/16/16 07:59 06:59 06:59 Intake Total 764 Balance 764 Weight General appearance: PRESENT: no acute distress, thin, other - bitemperal wasting sunken eye Head exam: PRESENT: normocephalic Eye exam: PRESENT: EOMI. ABSENT: scleral icterus Ear exam: PRESENT: normal external ear exam Mouth exam: PRESENT: moist Neck exam: ABSENT: carotid bruit, JVD, lymphadenopathy, thyromegaly Respiratory exam: PRESENT: clear to auscultation shane, rhonchi. ABSENT: rales, wheezes Cardiovascular exam: PRESENT: RRR. ABSENT: diastolic murmur, rubs, systolic murmur Pulses: PRESENT: normal dorsalis pedis pul Vascular exam: PRESENT: normal capillary refill GI/Abdominal exam: PRESENT: normal bowel sounds, soft. ABSENT: distended, guarding, mass, organolmegaly, rebound, tenderness Rectal exam: PRESENT: deferred Extremities exam: PRESENT: full ROM. ABSENT: calf tenderness, clubbing, pedal edema Neurological exam: PRESENT: alert, awake, oriented to person, oriented to place , oriented to time, oriented to situation, CN II-XII grossly intact. ABSENT: motor sensory deficit Psychiatric exam: PRESENT: appropriate affect, normal mood. ABSENT: homicidal ideation, suicidal ideation Skin exam: PRESENT: dry, intact, warm. ABSENT: cyanosis, rash Results Laboratory Results: 12/14/16 05:58 12/14/16 05:58 Impressions: Chest X-Ray 12/11/16 15:48 IMPRESSION: COPD WITH CHRONIC SCARRING. NO ACUTE FINDINGS. Assessment & Plan - Diagnosis (1) Chronic respiratory failure with hypoxia, on home O2 therapy Plan: Continue supplemental oxygen. Patient is fairly stable and maintaining her sats. She does become tachypneic when she exerts herself or speaks continuosly. (2) Depression Qualifiers: Depression Type: unspecified Qualified Code(s): F32.9 - Major depressive disorder, single episode, unspecified Is this a current diagnosis for this admission?: Yes Plan: Now on cymbalta. (3) COPD exacerbation Is this a current diagnosis for this admission?: Yes Plan: Continue weaning steroids. Will discharge on taper. Continue levaquin. Continue inhailers. Patient improved although still with dyspnea with minimal exertion. (4) GERD (gastroesophageal reflux disease) Qualifiers: Esophagitis presence: esophagitis presence not specified Qualified Code(s) : K21.9 - Gastro-esophageal reflux disease without esophagitis Is this a current diagnosis for this admission?: Yes Plan: Patient on PPI. (5) Hyperlipidemia Qualifiers: Hyperlipidemia type: unspecified Qualified Code(s): E78.5 - Hyperlipidemia , unspecified Is this a current diagnosis for this admission?: Yes Plan: Patient statin being held for mild transaminitis. May discontinue this medication all together as patient is going home with hospice. (6) Hypertension Qualifiers: Hypertension type: unspecified Qualified Code(s): I10 - Essential (primary ) hypertension Is this a current diagnosis for this admission?: Yes Plan: Continue low-dose beta-rogerio. (7) Protein-calorie malnutrition, severe Is this a current diagnosis for this admission?: Yes Plan: Patient has a BMI of 14.1. Patient is attempted to eat. Some of the weight loss may be secondary to her COPD. (8) UTI (urinary tract infection) Qualifiers: Urinary tract infection type: site unspecified Hematuria presence: without hematuria Qualified Code(s): N39.0 - Urinary tract infection, site not specified Is this a current diagnosis for this admission?: Yes Plan: Urine positive for enterococcus. Continue treatment with levaquin. (9) Tachycardia Is this a current diagnosis for this admission?: Yes Plan: Now improved. This could be due to her respiratory status. Will keep patient on low does beta rogerio. (10) Chronic pain Qualifiers: Chronic pain type: chronic pain syndrome Qualified Code(s): G89.4 - Chronic pain syndrome Is this a current diagnosis for this admission?: Yes Plan: Improved on cymbalta, gabapentin, motrin and tylenol. - Time Time Spent with patient: 15-24 minutes Anticipated discharge: Hospice Within: within 24 hours
[2016-12-16] MEDS: LANSOPRAZOLE 15 MG TAB.RAP.DR PO SCH (05:58)
[2016-12-16] MEDS: GABAPENTIN 100 MG CAPSULE PO SCH ×3 (05:58→21:09)
[2016-12-16] MEDS: BUDESONIDE NEB 0.5 MG/2 ML AMPUL NEB SCH ×2 (08:15→19:46)
[2016-12-16] MEDS ORDERED: PREDNISONE 20 MG TABLET PO SCH (10:00)
[2016-12-16] MEDS ORDERED: LEVOFLOXACIN 500 MG TABLET PO SCH (10:00)
[2016-12-16] MEDS: DULOXETINE HCL 20 MG CAPSULE.DR PO SCH (10:34)
[2016-12-16] MEDS: CHOLECALCIFEROL (D3) 1,000 UNIT TABLET PO SCH (10:34)
[2016-12-16] MEDS: GUAIFENESIN 600 MG TABLET.SA PO SCH ×2 (10:34→21:09)
[2016-12-16] MEDS: MEGESTROL ACETATE SUSP 400 MG/10 ML UDCUP PO SCH (10:34)
[2016-12-16] MEDS: METOPROLOL SUCCINATE 25 MG TAB.SR.24H PO SCH (10:35)
[2016-12-16] MEDS: MULTIVIT-STRESS FORMULA/ZINC TABLET PO SCH (10:35)
[2016-12-16] MEDS: ASCORBIC ACID 500 MG TABLET PO SCH ×2 (10:35→17:29)
[2016-12-16] MEDS: MONTELUKAST SODIUM 10 MG TABLET PO SCH (21:09)
[2016-12-17] MEDS: IPRATROPIUM/ALBUTEROL 0.5-2.5 MG/3 ML AMPUL NEB SCH ×2 (01:40→08:34)
[2016-12-17] MEDS: LANSOPRAZOLE 15 MG TAB.RAP.DR PO SCH (05:52)
[2016-12-17] MEDS: GABAPENTIN 100 MG CAPSULE PO SCH (05:52)
[2016-12-17] MEDS: BUDESONIDE NEB 0.5 MG/2 ML AMPUL NEB SCH (08:34)
[2016-12-17] MEDS ORDERED: ALBUTEROL SULFATE HFA (90 MCG/PUFF) 200 PUFF/8.5 GM MDI IH ONE (08:35)
[2016-12-17] MEDS ORDERED: FLUTICASONE/SALMETEROL DISKUS 500-50 MCG/DOSE IH ONE (08:36)
[2016-12-17] MEDS: DULOXETINE HCL 20 MG CAPSULE.DR PO SCH (09:29)
[2016-12-17] MEDS: MULTIVIT-STRESS FORMULA/ZINC TABLET PO SCH (09:30)
[2016-12-17] MEDS: CHOLECALCIFEROL (D3) 1,000 UNIT TABLET PO SCH (09:30)
[2016-12-17] MEDS: GUAIFENESIN 600 MG TABLET.SA PO SCH (09:30)
[2016-12-17] MEDS: METOPROLOL SUCCINATE 25 MG TAB.SR.24H PO SCH (09:30)
[2016-12-17] MEDS: ASCORBIC ACID 500 MG TABLET PO SCH (09:30)
[2016-12-17] MEDS: MEGESTROL ACETATE SUSP 400 MG/10 ML UDCUP PO SCH (09:31)
[2016-12-17 11:08] VITALS: BP 114/51
--- NOTE | 2016-12-17 20:24 | PDOC PROGRESS REPORT ---
Subjective Progress Note for:: 12/16/16 Subjective:: Patient is a 76-year-old female with a history of COPD, hypertension, hyperlipidemia, breast cancer status post lumpectomy, AVM of the spine presenting with COPD exacerbation. Patient states she is feeling much better. Patient states that her appetite is better. Patient is looking forward to going home. Physical Exam Vital Signs: Temp Pulse Resp BP Pulse Ox 97.7 F 84 16 126/52 H 95 12/17/16 08:31 12/17/16 08:32 12/17/16 08:32 12/17/16 08:31 12/17/16 08:32 Intake & Output 12/16/16 12/17/16 12/18/16 06:59 06:59 06:59 Intake Total 100 Balance 100 General appearance: PRESENT: no acute distress, thin, other - Frail, cachectic, bitemporal wasting. Head exam: PRESENT: atraumatic, normocephalic Eye exam: PRESENT: EOMI. ABSENT: scleral icterus Ear exam: PRESENT: normal external ear exam Mouth exam: PRESENT: moist Neck exam: ABSENT: carotid bruit, JVD, lymphadenopathy, thyromegaly Respiratory exam: PRESENT: rhonchi, other - Becomes winded with too much talking. ABSENT: rales, tachypnea, unlabored, wheezes Cardiovascular exam: PRESENT: RRR. ABSENT: diastolic murmur, rubs, systolic murmur Pulses: PRESENT: normal dorsalis pedis pul Vascular exam: PRESENT: normal capillary refill GI/Abdominal exam: PRESENT: normal bowel sounds, soft. ABSENT: distended, guarding, mass, organolmegaly, rebound, tenderness Rectal exam: PRESENT: deferred Extremities exam: PRESENT: full ROM. ABSENT: calf tenderness, clubbing, pedal edema Neurological exam: PRESENT: alert, awake, oriented to person, oriented to place , oriented to time, oriented to situation, CN II-XII grossly intact. ABSENT: motor sensory deficit Psychiatric exam: PRESENT: appropriate affect, normal mood. ABSENT: homicidal ideation, suicidal ideation Skin exam: PRESENT: dry, intact, warm. ABSENT: cyanosis, rash Results Impressions: Chest X-Ray 12/11/16 15:48 IMPRESSION: COPD WITH CHRONIC SCARRING. NO ACUTE FINDINGS. Assessment & Plan - Diagnosis (1) Chronic respiratory failure with hypoxia, on home O2 therapy Plan: Continue with supplemental oxygen. (2) Depression Qualifiers: Depression Type: unspecified Qualified Code(s): F32.9 - Major depressive disorder, single episode, unspecified Is this a current diagnosis for this admission?: Yes Plan: Now on cymbalta. She appears to be in better mood. Patient also has increased appetite. (3) COPD exacerbation Is this a current diagnosis for this admission?: Yes Plan: Will change to oral steroids in the morning. Will give patient last dose of p.o. Levaquin in the morning. Will discharge patient on a Solu-Medrol daily dose pack. (4) GERD (gastroesophageal reflux disease) Qualifiers: Esophagitis presence: esophagitis presence not specified Qualified Code(s) : K21.9 - Gastro-esophageal reflux disease without esophagitis Is this a current diagnosis for this admission?: Yes Plan: Continue on PPI. (5) Hyperlipidemia Qualifiers: Hyperlipidemia type: unspecified Qualified Code(s): E78.5 - Hyperlipidemia , unspecified Is this a current diagnosis for this admission?: Yes Plan: Statin discontinued. (6) Hypertension Qualifiers: Hypertension type: unspecified Qualified Code(s): I10 - Essential (primary ) hypertension Is this a current diagnosis for this admission?: Yes Plan: Continue low-dose beta-rogerio. (7) Protein-calorie malnutrition, severe Is this a current diagnosis for this admission?: Yes Plan: Patient has a BMI of 14.1. Some of the weight loss may be secondary to her COPD. Patient is eating more. (8) UTI (urinary tract infection) Qualifiers: Urinary tract infection type: site unspecified Hematuria presence: without hematuria Qualified Code(s): N39.0 - Urinary tract infection, site not specified Is this a current diagnosis for this admission?: Yes Plan: Urine positive for enterococcus. Patient will complete 5 days of treatment with Levaquin. (9) Tachycardia Is this a current diagnosis for this admission?: Yes Plan: Now improved. Continue low-dose beta-rogerio. (10) Chronic pain Qualifiers: Chronic pain type: chronic pain syndrome Qualified Code(s): G89.4 - Chronic pain syndrome Is this a current diagnosis for this admission?: Yes Plan: Improved on cymbalta, gabapentin, motrin and tylenol. - Time Time Spent with patient: 15-24 minutes Anticipated discharge: Hospice Within: within 24 hours - Awaiting the delivery of equipment to home prior to discharge home with hospice.
--- NOTE | 2016-12-17 20:34 | PDOC DISCHARGE SUMMARY ---
General - Admit/Disc Date/PCP Admission Date/Primary Care Provider: 12/16/16 22:29 Discharge Date: 12/17/16 - Discharge Diagnosis (2) Depression Is this a current diagnosis for this admission?: Yes (3) COPD exacerbation Is this a current diagnosis for this admission?: Yes (4) GERD (gastroesophageal reflux disease) Is this a current diagnosis for this admission?: Yes (5) Hyperlipidemia Is this a current diagnosis for this admission?: Yes (6) Hypertension Is this a current diagnosis for this admission?: Yes (7) Protein-calorie malnutrition, severe Is this a current diagnosis for this admission?: Yes (8) UTI (urinary tract infection) Is this a current diagnosis for this admission?: Yes (9) Tachycardia Is this a current diagnosis for this admission?: Yes (10) Chronic pain Is this a current diagnosis for this admission?: Yes - Additional Information Resuscitation Status: Do Not Resuscitate Discharge Diet: As Tolerated Discharge Activity: Activity As Tolerated Home Medications: Omeprazole 20 mg PO DAILY 12/11/16 Albuterol Sulfate [Proair HFA] 1 - 2 puff IH Q4 PRN #1 inhaler 12/17/16 Duloxetine HCl [Cymbalta 20 mg Capsule.] 20 mg PO DAILY capsule. 12/17/16 Fluticasone/Salmeterol [Advair 500-50 Diskus 28 Dose] 1 inh IH Q12H #1 inhaler 12/17/16 Gabapentin [Neurontin 100 mg Capsule] 100 mg PO Q8 capsule 12/17/16 Guaifenesin [Mucinex Sr 600 mg Tablet.sa] 600 mg PO Q12 tablet.sa 12/17/16 Ibuprofen [Motrin 400 mg Tablet] 400 mg PO Q6HP PRN tablet 12/17/16 Ipratropium/Albuterol Sulfate [Duoneb 3 ml Ampul] 3 ml NEB RTQ6 vial.neb Methylprednisolone [Medrol Dosepack (4 mg/Tab) 21 Tab/Dosepak] 4 mg PO ASDIR PRN #21 tab.ds.pk 12/17/16 Metoprolol Succinate [Toprol Xl 25 mg Tab.sr] 25 mg PO DAILY tab.sr.24h Montelukast Sodium [Singulair 10 mg Tablet] 10 mg PO QHS tablet 12/17/16 History of Present Illness History of Present Illness: JEN BAKER is a 76 year old female who presented with COPD exacerbation. Patient was also found to have a UTI. Patient was admitted for the treatment of both. Hospital Course Hospital Course: - Diagnosis (1) Chronic respiratory failure with hypoxia, on home O2 therapy Patient with chronic hypoxic respiratory failure. Patient was on supplemental oxygen however has been unable to obtain it through her PCP. Patient caregiver which is her niece has been paying for out of pocket. Patient has been kept on oxygen during her entire hospitalization. Patient will be discharged on oxygen. (2) Depression She was initially placed on Remeron which she has taken in the past. However because patient has severe back pain it was thought that Cymbalta would be better suited for her symptoms of pain and depression. (3) COPD exacerbation Patient has advanced lung disease. Her exacerbation is most likely due to acute bronchitis. Patient was initially treated with IV steroids and inhalers along with Levaquin. Patient shows significant improvement in her symptoms although she does become dyspneic when she talks without taking breaks. Patient is pretty much bedbound so she is not able to really exert herself. Patient is being discharged home on Advair, pro-air as needed, Singulair and Mucinex. Patient is also being discharged with a nebulizer and DuoNeb's to use as needed. (4) GERD (gastroesophageal reflux disease) Patient patient can continue on a PPI if she is having reflux symptoms. (5) Hyperlipidemia Statin is discontinued as she is being discharged home with hospice. (6) Hypertension She started on a low-dose beta rogerio as patient was persistently tachycardic which may be a result of her breathing. Patient seems better now since being started on a low-dose beta-rogerio P. (7) Protein-calorie malnutrition, severe Patient has a BMI of 14.1. Some of the weight loss may be secondary to her COPD. Patient will be continued on Megace on discharge to help stimulate her appetite. (8) UTI (urinary tract infection) With the enterococcus UTI. Patient count completed treatment with Levaquin. (9) Tachycardia Patient tachycardia was initially thought to be secondary to the nebulizers however this is most likely secondary to her advanced lung disease. Patient was started on low-dose beta-rogerio and seemed to respond to it well. The tachycardia may have been affecting her breathing and the breathing may be causing her tachycardia. The patient's breathing is improved along with her tachycardia. (10) Chronic pain Will be continued on Cymbalta, gabapentin, motrin and tylenol. These seem to control her pain. Physical Exam Vital Signs: Temp Pulse Resp BP Pulse Ox 97.7 F 84 16 126/52 H 95 12/17/16 08:31 12/17/16 08:32 12/17/16 08:32 12/17/16 08:31 12/17/16 08:32 Intake & Output 12/16/16 12/17/16 12/18/16 06:59 06:59 06:59 Intake Total 100 Balance 100 General appearance: PRESENT: no acute distress, thin, other - Elderly female Head exam: PRESENT: atraumatic, normocephalic, other - Bitemporal wasting Eye exam: PRESENT: EOMI, other - Sunken eyes. ABSENT: scleral icterus Ear exam: PRESENT: normal external ear exam Mouth exam: PRESENT: moist Neck exam: ABSENT: carotid bruit, JVD, lymphadenopathy, thyromegaly Respiratory exam: PRESENT: rhonchi. ABSENT: rales, wheezes Cardiovascular exam: ABSENT: diastolic murmur, rubs, systolic murmur Pulses: PRESENT: normal dorsalis pedis pul GI/Abdominal exam: PRESENT: normal bowel sounds, soft. ABSENT: distended, guarding, mass, organolmegaly, rebound, tenderness Rectal exam: PRESENT: deferred Extremities exam: PRESENT: full ROM. ABSENT: calf tenderness, clubbing, pedal edema Neurological exam: PRESENT: alert, awake, oriented to person, oriented to place , oriented to time, oriented to situation, CN II-XII grossly intact. ABSENT: motor sensory deficit Psychiatric exam: PRESENT: appropriate affect, normal mood. ABSENT: homicidal ideation, suicidal ideation Skin exam: PRESENT: dry, intact, warm. ABSENT: cyanosis, rash Results Impressions: Chest X-Ray 12/11/16 15:48 IMPRESSION: COPD WITH CHRONIC SCARRING. NO ACUTE FINDINGS. Qualifiers PATEINT BEING DISCHARGED WITH ANY OF THE FOLLOWING DIAGNOSIS?: No Plan Time Spent: Greater than 30 Minutes - Patient is being discharged home with hospice.
--- NOTE | 2016-12-17 23:24 | Palliative Consultation Report ---
Consultation From:: LORI DASH - HPI Chief Complaint: dyspnea HPI: Palliative Care consult visit 12/17/16 9:35- 9:55 AM Appreciate palliative care/ hopsice consult with this delightful 76 year old woman who has been chronically ill with COPD for many years. She has also had history of breast cancer and AVM of the spine. She is very weak and frail and appears older than her years. Ms. Betancourt is alert and oriented today. She is trying to eat her breakfast and is very weak, but independent. She is glad she is going home with her neice and nephew and with hospice to assist with care. She tells me they are awaiting her hospital bed and other equipment and then she will be ready. She says she is very tired as "she cant get any sleep in the hospital", but overall she is feeling much better than wehn she arrived. Patient reports that she has had oxygen at home for many years and uses it all of the time. SHe has obvious conversational dyspnea and is short of breath with even the act of eating. She denies having pain except being tired of the bed. Ms. Betancourt is very grateful for her family and glad they will be having some help with her care. She says she hopes t not have to come back to the hospital. Onset: Last week Onset/Duration: Gradual Quality of Pain: No pain Associated Symptoms: Productive cough, Shortness of breath, Weakness Exacerbated by: Other - Conversational dyspnea Past Medical History(Consults) - General Information Source: Patient, [facility] Records Home Medications: Omeprazole 20 mg PO DAILY 12/11/16 Albuterol Sulfate [Proair HFA] 1 - 2 puff IH Q4 PRN #1 inhaler 12/17/16 Duloxetine HCl [Cymbalta 20 mg Capsule.] 20 mg PO DAILY capsule. 12/17/16 Fluticasone/Salmeterol [Advair 500-50 Diskus 28 Dose] 1 inh IH Q12H #1 inhaler 12/17/16 Gabapentin [Neurontin 100 mg Capsule] 100 mg PO Q8 capsule 12/17/16 Guaifenesin [Mucinex Sr 600 mg Tablet.sa] 600 mg PO Q12 tablet.sa 12/17/16 Ibuprofen [Motrin 400 mg Tablet] 400 mg PO Q6HP PRN tablet 12/17/16 Ipratropium/Albuterol Sulfate [Duoneb 3 ml Ampul] 3 ml NEB RTQ6 vial.neb Methylprednisolone [Medrol Dosepack (4 mg/Tab) 21 Tab/Dosepak] 4 mg PO ASDIR PRN #21 tab.ds.pk 12/17/16 Metoprolol Succinate [Toprol Xl 25 mg Tab.sr] 25 mg PO DAILY tab.sr.24h Montelukast Sodium [Singulair 10 mg Tablet] 10 mg PO QHS tablet 12/17/16 Allergies/Adverse Reactions: codeine Allergy (Verified 12/11/16 16:03) Penicillins Allergy (Verified 12/11/16 16:03) sulfamethoxazole [From Bactrim] Allergy (Verified 12/11/16 16:03) trimethoprim [From Bactrim] Allergy (Verified 12/11/16 16:03) - Social History Lives with: Family Family History: Malignancy Parental Family History Reviewed: No Children Family History Reviewed: No Sibling(s) Family History Reviewed.: No Smoking Status: Former Smoker Frequency of Alcohol Use: Rare Hx Recreational Drug Use: No Hx Prescription Drug Abuse: No - Past Medical History Cardiac Medical History: Reports: Hx Hypercholesterolemia, Hx Hypertension Pulmonary Medical History: Reports: Hx COPD - 2L NC at home, Hx Pneumonia Malignancy Medical History: Reports: Hx Breast Cancer GI Medical History: Reports: Hx Gastroesophageal Reflux Disease Musculoskeltal Medical History: Reports Hx Arthritis - Surgical History Past Surgical History: Reports: Hx Appendectomy, Hx Cholecystectomy, Hx Orthopedic Surgery - femur john, lt shoulder, back surgery, ORIF of ankle Review of systems Constitutional: Weakness, Recent illness Cardiovascular: Orthopnea, Dyspnea Respiratory: Cough, Short of breath Neurological/Psychological: Weakness Ojective:Exam Vital Signs: Temp Pulse Resp BP Pulse Ox 97.7 F 84 16 126/52 H 95 12/17/16 08:31 12/17/16 08:32 12/17/16 08:32 12/17/16 08:31 12/17/16 08:32 Intake & Output 12/16/16 12/17/16 12/18/16 06:59 06:59 06:59 Intake Total 100 Balance 100 - General General Appearance: Alert In distress: Mild - HEENT Head: Normocephalic Conjunctiva: Normal Pupils: PERRLA Mouth/Lips: Normal - Respiratory Respiratory Status: Labored Chest Status: Pain with cough Breath sounds: Rhonchi - Cardiovascular Rhythm: Regular Pulses: Normal: Radial - Abdominal Inspection: Normal Distension: No distension - Psychological Associated symptoms: Normal affect, Normal mood - Skin Skin Temperature: Warm Skin Color: Pale Plan and Recommendation Plan and Recommendation: [facility] is going to follow patient at home, DME being set up this AM, ambulance transport arranged. Portable DNR on chart. No current needs for medication changes. Will follow with hospice. Discussed with nurse and sr. merchandise planner. Hospice liason here to secure final arrangements for transfer. - Time Spent with Patient Time spent with patient: 15 to 30 Minutes Time: 20 min Greater then 50% spent on Counseling & Coordination of Care: 20 min spent with consultation nurses and liason.
== END 2016-12-17 11:35 | disposition hospice, home (50) | DRG 190 ==
LOC: ER 15:35 → UNDOADMIN 20:02 → EH 20:02 → UNDOADMIN 21:42 → EH 22:17 → 4S 22:17 → EH 22:24 → 3W 22:49 → EH 22:49 → 3W 12-16 22:29 → 4S 12-16 22:29 → EH 12-16 22:29 → UNDOADMIN 12-16 22:29 → 3W 12-16 23:30 → 5 12-16 23:30 → UNDODISIN 12-17 11:35
PROVIDERS: ADMIT Family Medicine; ATTEND Family Medicine
PROC: 3E0F73Z Introduction of Anti-inflammatory into Respiratory Tract, Via Natural or Artificial Opening (ICD-10-PCS; principal; 2016-12-12)
DX: J44.1 Chronic obstructive pulmonary disease with (acute) exacerbation (principal); E43 Unspecified severe protein-calorie malnutrition; Z68.1 Body mass index [BMI] 19.9 or less, adult; N39.0 Urinary tract infection, site not specified; J96.11 Chronic respiratory failure with hypoxia; Z66 Do not resuscitate; F32.9 Major depressive disorder, single episode, unspecified; K21.9 Gastro-esophageal reflux disease without esophagitis; E78.5 Hyperlipidemia, unspecified; I10 Essential (primary) hypertension; R00.0 Tachycardia, unspecified; J44.0 Chronic obstructive pulmonary disease with (acute) lower respiratory infection; J20.9 Acute bronchitis, unspecified; B95.2 Enterococcus as the cause of diseases classified elsewhere; G89.4 Chronic pain syndrome; Z79.899 Other long term (current) drug therapy; Z99.81 Dependence on supplemental oxygen; Z51.5 Encounter for palliative care; Q27.39 Arteriovenous malformation, other site; Z85.3 Personal history of malignant neoplasm of breast; Z88.6 Allergy status to analgesic agent; Z88.3 Allergy status to other anti-infective agents; Z88.0 Allergy status to penicillin; Z88.2 Allergy status to sulfonamides; Z87.891 Personal history of nicotine dependence; Z90.49 Acquired absence of other specified parts of digestive tract; Z80.9 Family history of malignant neoplasm, unspecified
CPT/HCPCS: 36415; 71010; 80048; 80053; 81001; 82550; 82553; 83605; 84484; 85025; 87040; 87070; 87086; 87088; 87186; 87205; 93005; 93010; 94640; 94668; 94799; 96365; 99285; J1885; J1956; J2920; J2930; J3490; J7030; J7512; J7620